=== PATIENT | female | born 1935 | race Caucasian/White ===

== ENCOUNTER 2020-08-01 10:01 | Emergency (ER) | payer MEDICARE, BC ==
--- NOTE | 2020-08-01 10:43 | EDM.PDOC ---
ED HPI GENERAL MEDICAL PROBLEM - General Chief Complaint: Chest Pain Stated Complaint: RIGHT UPPER CHEST PAIN/PRIOR HIP REPLACEMENT Time Seen by Provider: 08/01/20 10:40 Source of Information: Reports: Patient History Limitations: Reports: No Limitations - History of Present Illness INITIAL COMMENTS - FREE TEXT/NARRATIVE: This 84 yo female patient reports to the ED with right sided rib/back pain. The patient reports her symptoms started this morning at about midnight. The patient reports she has continued to have pain in the right ribs. The patient has increased concerns for a blood clot due to recent surgery on her right hip. The patient reports increased pain with taking a deep breath. Onset: Today Onset Date: 08/01/20 Onset Time: 00:00 Duration: Constant Location: Reports: Chest (right rib and back tenderness) Quality: Reports: Ache, Sharp Severity: Moderate Improves with: Reports: Rest Worsens with: Reports: Breathing Context: Reports: Other Associated Symptoms: Reports: Chest Pain Right Back Pain Score (Numeric/FACES): 8 - Related Data Allergies Allergy/AdvReac Type Severity Reaction Status Date / Time cefuroxime Allergy Other Verified 07/20/14 11:24 Latex, Natural Rubber Allergy Rash Verified 07/20/14 11:24 Home Meds: Home Meds Levothyroxine 12.5 mcg PO DAILY 11/19/13 [History] atorvaSTATin [Lipitor] 5 mg PO BEDTIME 11/19/13 [History] traMADol [Ultram] 50 mg PO BID 11/19/13 [History] Aspirin [Adult Low Dose Aspirin EC] 81 mg PO DAILY 10/06/18 [History] Cetirizine HCl 5 mg PO DAILY PRN 10/06/18 [History] Cyanocobalamin (Vitamin B12) [Vitamin B12] 100 mcg PO DAILY 10/06/18 [History] Docusate Sodium [Colace] 100 mg PO DAILY 10/06/18 [History] Gabapentin [Neurontin] 100 mg PO BID 10/06/18 [History] Lactulose 15 ml PO BEDTIME 10/06/18 [History] Levothyroxine [Synthroid] 50 mcg PO ACBREAKFAST 10/06/18 [History] Multivitamin [Multivitamins] 1 tab PO DAILY 10/07/18 [History] Past Medical History Cardiovascular History: Reports: High Cholesterol Musculoskeletal History: Reports: Fibromyalgia, Osteoarthritis Neurological History: Reports: Other (See Below) Other Neuro History: transient global amnesia - Past Surgical History Musculoskeletal Surgical History: Reports: Hip Replacement Social & Family History - Family History Family Medical History: No Pertinent Family History - Tobacco Use Tobacco Use Status *Q: Never Tobacco User - Caffeine Use Caffeine Use: Reports: Coffee - Recreational Drug Use Recreational Drug Use: No - Living Situation & Occupation Living situation: Reports: , with Family Occupation: Retired ED ROS GENERAL - Review of Systems Review Of Systems: Comprehensive ROS is negative, except as noted in HPI. ED EXAM, GENERAL - Physical Exam Exam: See Below Exam Limited By: No Limitations General Appearance: Alert, WD/WN, Anxious, Moderate Distress Eye Exam: Bilateral Eye: EOMI, Normal Inspection, PERRL Ears: Normal External Exam, Normal Canal, Hearing Grossly Normal, Normal TMs Nose: Normal Inspection, Normal Mucosa, No Blood Throat/Mouth: Normal Inspection, Normal Lips, Normal Teeth, Normal Gums, Normal Oropharynx, Normal Voice, No Airway Compromise Head: Atraumatic, Normocephalic Neck: Normal Inspection, Supple, Non-Tender, Full Range of Motion Respiratory/Chest: No Respiratory Distress, Lungs Clear, Normal Breath Sounds, No Accessory Muscle Use, Other (Right lateral and posterior chest wall tenderness) Cardiovascular: Normal Peripheral Pulses, Regular Rate, Rhythm, No Edema, No Gallop, No JVD, No Murmur, No Rub GI/Abdominal: Normal Bowel Sounds, Soft, Non-Tender, No Organomegaly, No Distention, No Abnormal Bruit, No Mass (Female) Exam: Deferred Rectal (Female) Exam: Deferred Back Exam: Normal Inspection, Full Range of Motion, NT Extremities: Normal Inspection, Normal Range of Motion, Non-Tender, Normal Capillary Refill, No Pedal Edema Neurological: Alert, Oriented, CN II-XII Intact, Normal Cognition, Normal Gait, Normal Reflexes, No Motor/Sensory Deficits Psychiatric: Anxious Skin Exam: Warm, Dry, Intact, Normal Color, No Rash Lymphatic: No Adenopathy #1 Interpretation EKG Date: 08/01/20 Time: 10:34 Rhythm: NSR Rate (Beats/Min): 71 [place]: Normal P-Wave: Present QRS: LBBB ST-T: Normal QT: Normal Comparison: No Change Course - Vital Signs Last Recorded V/S: Last Vital Signs Temp 36.5 C 08/01/20 10:25 Pulse 74 04/19/21 10:25 Resp 17 08/01/20 10:25 BP 165/63 H 08/01/20 10:25 Pulse Ox 97 08/01/20 10:25 - Orders/Labs/Meds Orders: Active Orders 24 hr Category Date Time Status EKG Documentation Completion [RC] STAT Care 08/01/20 10:13 Ordered CULTURE BLOOD [BC] Stat Lab 08/01/20 10:13 Ordered Labs: Laboratory Tests 08/01/20 08/01/20 08/01/20 Range/Units 10:23 10:23 10:23 WBC 10.7 H (5.0-10.0) 10^3/uL RBC 4.24 (4.2-5.4) 10^6/uL Hgb 13.0 (12.0-16.0) g/dL Hct 39.9 (37.0-47.0) % MCV 94.1 (80-100) fL MCH 30.7 (27.0-34.0) pg MCHC 32.6 L (33.0-35.0) g/dL Plt Count 354 D (150-450) 10^3/uL Neut % (Auto) 63.3 (42.2-75.2) % Lymph % (Auto) 20.9 (20.5-50.1) % [place] % (Auto) 14.4 H (2-8) % Eos % (Auto) 1.1 (1.0-3.0) % Baso % (Auto) 0.3 (0.0-1.0) % D-Dimer, Quantitative 1100 H (0-400) ng/mL Sodium 138 (136-145) mmol/L Potassium 4.3 (3.5-5.1) mmol/L Chloride 102 (98-107) mmol/L Carbon Dioxide 28 (21-32) mmol/L Anion Gap 12.3 (7-13) mEq/L BUN 20 H (7-18) mg/dL Creatinine 0.62 (0.55-1.02) mg/dL Est Cr Clr Drug Dosing 62.10 mL/min Estimated GFR (MDRD) > 60 BUN/Creatinine Ratio 32.3 (No establ ref range) Glucose 93 (70-99) mg/dL Lactic Acid (0.4-2.0) mmol/L Calcium 8.7 (8.5-10.1) mg/dL Total Bilirubin 0.6 (0.2-1.0) mg/dL AST 18 (15-37) U/L ALT 26 (14-59) U/L Alkaline Phosphatase 98 (46-116) U/L Troponin I < 0.017 (0.000-0.056) ng/mL B-Natriuretic Peptide 37 (0-100) pg/ml Total Protein 6.6 (6.4-8.2) g/dL Albumin 3.6 (3.4-5.0) g/dL Globulin 3.0 Albumin/Globulin Ratio 1.2 // Range/Units 10:23 WBC (5.0-10.0) 10^3/uL RBC (4.2-5.4) 10^6/uL Hgb (12.0-16.0) g/dL Hct (37.0-47.0) % MCV (80-100) fL MCH (27.0-34.0) pg MCHC (33.0-35.0) g/dL Plt Count (150-450) 10^3/uL Neut % (Auto) (42.2-75.2) % Lymph % (Auto) (20.5-50.1) % [place] % (Auto) (2-8) % Eos % (Auto) (1.0-3.0) % Baso % (Auto) (0.0-1.0) % D-Dimer, Quantitative (0-400) ng/mL Sodium (136-145) mmol/L Potassium (3.5-5.1) mmol/L Chloride (98-107) mmol/L Carbon Dioxide (21-32) mmol/L Anion Gap (7-13) mEq/L BUN (7-18) mg/dL Creatinine (0.55-1.02) mg/dL Est Cr Clr Drug Dosing mL/min Estimated GFR (MDRD) BUN/Creatinine Ratio (No establ ref range) Glucose (70-99) mg/dL Lactic Acid 1.2 (0.4-2.0) mmol/L Calcium (8.5-10.1) mg/dL Total Bilirubin (0.2-1.0) mg/dL AST (15-37) U/L ALT (14-59) U/L Alkaline Phosphatase (46-116) U/L Troponin I (0.000-0.056) ng/mL B-Natriuretic Peptide (0-100) pg/ml Total Protein (6.4-8.2) g/dL Albumin (3.4-5.0) g/dL Globulin Albumin/Globulin Ratio Meds: Medications Discontinued Medications Generic Name Dose Route Start Last Admin Trade Name Freq PRN Reason Stop Dose Admin Iopamidol 100 ml 08/01/20 11:14 08/01/20 11:55 Iopamidol 755 Mg/Ml 100 Ml Bottle IVPUSH 08/01/20 11:15 61 ml ONETIME ONE Administration - Re-Assessments/Exams Free Text/Narrative Re-Assessment/Exam: 08/01/20 11:15 The patient and family were advised of the lab results and the need for further studies (CT of chest). The patient and daughter were in agreement with further evaluation. Departure - Departure Time of Disposition: 12:36 Disposition: Home, Self-Care 01 Condition: Fair Clinical Impression: Chest wall pain Instructions: Chest Wall Pain, [id number] Forms: ED Department Discharge Care Plan Goals: The patient was advised of the examination, lab, EKG and CT results during the visit. The patient was encouraged to continue to watch for any additional symptoms. If the patient has any additional symptoms or concerns, the patient should either return to the emergency department or visit her primary care facility. Sepsis Event Note (ED) - Evaluation Sepsis Screening Result: No Definite Risk - Focused Exam Vital Signs: Vital Signs Temp Pulse Resp BP Pulse Ox 08/01/20 10:25 36.5 C 74 17 165/63 H 97 - My Orders Last 24 Hours: My Active Orders 08/01/20 10:13 EKG Documentation Completion [RC] STAT CULTURE BLOOD [BC] Stat - Assessment/Plan Last 24 Hours: My Active Orders 08/01/20 10:13 EKG Documentation Completion [RC] STAT CULTURE BLOOD [BC] Stat
[2020-08-01 10:57] LABS: ANION GAP 12.3 mEq/L (7-13); CHLORIDE,CL 102 mmol/L (98-107); SODIUM,NA 138 mmol/L (136-145)
[2020-08-01] MEDS ORDERED: Iopamidol 755 Mg/ML 100 ML Bottle IVPUSH ONE (11:14)
--- NOTE | 2020-08-01 12:25 | CT ---
EXAMINATION: Chest w Cont SEX: Female AGE: 84 years CLINICAL HISTORY: 84-year-old 159 pound female with right CHEST PAIN, abnormally elevated serum D dimer (1100). Serum WBC 10,700. Note: Recent right hip surgery. Rule out pulmonary embolism or infarct. Scan technique: Volume acquisition of data from the chest (bony thorax, lungs, mediastinum and pulmonary vascularity) obtained with patient lying supine on the Siemens multislice CT scanner during the intravenous administration 61 cc nonionic 370 contrast at 4.7 cc/s via injector (GFR greater than 60) while patient was lying supine. All data archived in the PACS system for storage, reformatting axial/sagittal/coronal planes and study. Comparison CT May 2016. Interpretation: 1. Osteoporosis; kyphoscoliosis; multilevel disc disease and mild spondylosis. No fracture or dislocation. 2. Solitary, discrete 1.5 cm diameter, smoothly marginated round, peripheral, pleural-based fat-containing parenchymal lung nodule, posteriorly right lower lobe (RLL) best seen on axial slice #58; coronal slice #69. Probable hamartoma. 3. No other discrete parenchymal lung nodule or mass lesion. No hilar or mediastinal lymphadenopathy. 4. Small dependent right pleural effusion with some underlying atelectasis. 5. Large heart and generalized mild pulmonary vascular congestion. No pericardial effusion. No alveolar edema. 6. No focal alveolar consolidation (infiltrate) or peripheral "groundglass" interstitial lung densities. 7. Atheromatous calcifications normal caliber thoracic aorta. No sign of intraluminal filling defect or thrombus main or second tear pulmonary artery circulation. Interstitial fibrosis. No abnormal focal areas of oligemia or peripheral "wedge" shaped infarcts. No cystic/bullous emphysematous lesions. No pneumothorax or pneumomediastinum. 8. Gallbladder, liver, stomach (small hiatus hernia), spleen, pancreas and adrenal glands unremarkable. CONCLUSION: Low probability pulmonary embolism/infarct. Cardiomegaly and mild pulmonary congestion/small right effusion. BNP? EKG? Weight gain? No sign of lung malignancy or lobar pneumonia. 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 (Present CT 12 June 2016) Abnormalities thoracic spine.
== END 2020-08-01 13:26 | disposition home or self-care (01) ==
LOC: DL.ED 10:01
DX: R07.89 Other chest pain (principal); E78.00 Pure hypercholesterolemia, unspecified; Z79.899 Other long term (current) drug therapy; Z88.1 Allergy status to other antibiotic agents; Z91.040 Latex allergy status
CPT/HCPCS: 36415; 71260; 80053; 83605; 83880; 84484; 85025; 85379; 87040; 93005; 93010; 99284; 99284-25; Q9967